=== PATIENT | male | born 1945 | race Caucasian/White ===

== ENCOUNTER → 2021-02-13 | Outpatient (CLI) | payer OTHER ==
--- NOTE | 2021-02-13 09:18 | US ---
EXAMINATION TYPE: US duplex aorta DATE OF EXAM: 02/13/2021 COMPARISON: NONE CLINICAL HISTORY: AAA Screening I71.4. No HTN. No high cholesterol. No family hx. Non smoker. EXAM MEASUREMENTS: Abdominal Aorta: Proximal: 2.2 x 2.0 cm Mid: 2.1 x 2.4 cm Distal: 1.7 x 1.8 cm Bifurcation: Right- 1.2 x 1.3 cm Left- 1.2 x 1.2 cm No AAA visualized. Plaque seen. IMPRESSION: 1. Screening ultrasound negative for aneurysm. 2. There is some mild fusiform prominence within the mid abdominal aorta the greatest transverse dime nsion of 2.4 cm.
== END | disposition home or self-care (01) ==
LOC: RADUSWWP 08:41
PROVIDERS: ATTEND Family Medicine
DX: Z13.6 Encounter for screening for cardiovascular disorders (principal)
CPT/HCPCS: 93979